=== PATIENT | female | born 1940 | race Caucasian/White ===

== ENCOUNTER → 2020-10-07 13:47 | Outpatient (CLI) | payer MEDICARE, SELFPAY ==
--- NOTE | ~2020-10-07 | CT_ITS ---
EXAMINATION: CT diagnostic chest w con EXAM DATE: 10/07/2020 14:17 INDICATION: Chest tightness, fatigue, coronary heart disease, weakness. History of breast cancer. His tory bradycardia and coronary heart disease. TECHNIQUE: Spiral CT of the chest following intravenous injection of 75 mL Omnipaque 350. Axial, cor onal and sagittal images of the chest were reviewed. Coronal maximum intensity pixel images of chest reviewed. The dose-length product (DLP) for this examination was 264.00 mGy-cm. The exposure was t ailored according to patient size (auto mA exposure control), and iterative reconstruction (ASIR) was used as additional dose reduction technique. There is no prior study for comparison. FINDINGS: The lungs are clear. Some regions of dependent posterior mild pleural thickening bilateral ly. There are no pleural or pericardial effusions. There is mild emphysema. Tracheobronchial tree is patent. There is no mediastinal, hilar or axillary lymphadenopathy. There is no pneumothorax. H eart normal in size. There is mild coronary arterial calcification, arterial sclerosis. Upper abdo men is unremarkable. There is mild thoracic spondylosis without osteoblastic or osteolytic lesions identified. There are old left rib fractures. Right axillary, breast surgical clips. IMPRESSION: 1. Mild emphysema. Reviewed, dictated and finalized at location A. IMPRESSION: 1. Mild emphysema.
[2020-10-07 14:07] LABS: Estimated Glomerular Filt Rate 60
== END ==
PROVIDERS: PCP Pediatrics; Visit Provider Pediatrics
DX: R53.83 Other fatigue (principal); R07.89 Other chest pain; R53.1 Weakness; R00.1 Bradycardia, unspecified; I25.10 Atherosclerotic heart disease of native coronary artery without angina pectoris; R06.00 Dyspnea, unspecified; J43.9 Emphysema, unspecified
CPT/HCPCS: 71260; Q9967

== ENCOUNTER → 2022-11-04 09:38 | Outpatient (CLI) | payer MEDICARE, SELFPAY ==
--- NOTE | ~2022-11-04 | MR_ITS ---
MRI of the lumbar spine Clinical History: Pain Technique: Axial T2-weighted images, and sagittal T1-weighted, T2-weighted, and T2 fat-sat images wer e acquired. Findings: No fracture identified. There is 4 mm retrolisthesis of L2 over L3. There are reactive cortez ow signal changes at the L4-L5 and L5-S1 disc space regions due to underlying degenerative disc disea se. At L1-L2, there is minimal disc bulge and moderate facet arthropathy. No spinal canal stenosis or def inite neural foraminal narrowing. L2-L3, there is disc bulge and advanced facet arthropathy. No central canal stenosis. There is modera te to severe left neural foraminal narrowing and mild right neural foraminal narrowing. L3-L4, there is minimal disc bulge with advanced facet arthropathy. No central canal stenosis. There is minimal left neural foraminal narrowing. Right neural foramen preserved. At L4-L5, there is severe degenerative disc narrowing with minimal bulge. There is advanced facet art hropathy. No central canal stenosis. There is mild to moderate right neural foraminal narrowing. Left neural foramen preserved. At L5-S1, there is advanced degenerative disc narrowing with minimal bulge. There is mild to moderate facet arthropathy. No central canal stenosis or definite neural foraminal narrowing. Paravertebral soft tissues are unremarkable. Impression: [id number] degenerative spondylosis overall, as detailed above. 4 mm retrolisthesis of L2 over L3. Reviewed, dictated and finalized at [facility]. Impression: [id number] degenerative spondylosis overall, as detailed above. 4 mm retrolisthesis of L2 over L3.
--- NOTE | ~2022-11-04 | MR_ITS ---
MRI of the thoracic spine Clinical History: Back pain Technique: Axial T2-weighted and gradient images, and sagittal T1-weighted, T2-weighted, and STIR benny ges were acquired. Findings: There is no fracture or subluxation of the thoracic spine. Vertebral bodies maintain normal height and alignment. No suspicious bone marrow signal abnormality seen. There is mild left paracentral disc bulge at T11-T12. There is minimal disc bulge at T7-T8 and T6-T7. There is mild facet arthropathy at T12-L1. No spinal canal stenosis or cord compression seen at any thoracic level. No other epidural mass or co llection evident. Paravertebral soft tissues are unremarkable. Impression: Minimal degenerative change, as above. Reviewed, dictated and finalized at [facility]. Impression: Minimal degenerative change, as above.
== END ==
PROVIDERS: PCP Pediatrics; Visit Provider Pediatrics
DX: R29.818 Other symptoms and signs involving the nervous system (principal); M54.50 Low back pain, unspecified; R20.0 Anesthesia of skin; M85.80 Other specified disorders of bone density and structure, unspecified site; M47.896 Other spondylosis, lumbar region
CPT/HCPCS: 72146; 72148